=== PATIENT | male | born 1990 | race Caucasian/White ===

== ENCOUNTER 2020-06-23 01:35 | Inpatient (IN) | payer MEDICAID ==
[~2020-06-23] VITALS: Ht 175.3 cm; Wt 80.0 kg
[2020-06-23] VITALS (18 sets, daily range): BP systolic 101–135; BP diastolic 61–84
[2020-06-23] MEDS ORDERED: etomidate 2mg/ml inj. IV ONE (01:36)
[2020-06-23] MEDS ORDERED: succinylcholine 20mg/ml inj IV STA (01:36)
[2020-06-23] MEDS ORDERED: methylPREDNISolone sod succ 125mg/2ml vial IV ONE (01:45)
[2020-06-23] MEDS ORDERED: ipratropium/albuterol 3ml nebule NEB ONE (01:45)
[2020-06-23] MEDS: propofol 1000mg/100ml bottle 100 ML IV PRN ×2 (01:56→04:59)
--- NOTE | 2020-06-23 02:06 | NUR ---
warmed blankets on pt and lights dimmed, try to quiet him. Had to increase propofol gtt. Girlfriend is here in the lobby.
[2020-06-23 02:09] LABS: ISTAT CREATININE 1.2 mg/dL (0.8-1.3); ISTAT HGB 16.3 g/dl (14.0-18.0); ISTAT IONIZED CALCIUM 1.33 mmol/L (1.03-1.32); ISTAT K 4.3 mmol/L (3.5-5.1); POC BUN/CREATININE RATIO 20.8 (5.4-32.0)
[2020-06-23 02:10] LABS: BASOPHILS # (AUTO) 0.1 X10'3 (0-0.2); BASOPHILS % (AUTO) 0.6 % (0-1); EOSINOPHILS # (AUTO) 1.3 X10'3 (0-0.9); EOSINOPHILS % (AUTO) 6.3 % (0-6); LYMPHOCYTES # (AUTO) 8.1 X10'3 (1.1-4.8); LYMPHOCYTES % (AUTO) 39.5 % (21-51); MEAN CORPUSCULAR HEMOGLOBIN 30.1 PG (27.0-31.0); MEAN CORPUSCULAR HGB CONC 32.6 g/dL (33.0-36.5); MEAN CORPUSCULAR VOLUME 92.3 FL (78-98); MEAN PLATELET VOLUME 9.2 FL (7.4-10.4); MONOCYTES # (AUTO) 1.6 X10'3 (0-0.9); MONOCYTES % (AUTO) 7.8 % (2-12); NEUTROPHILS # (AUTO) 9.4 X10'3 (1.8-7.7); NEUTROPHILS % (AUTO) 45.8 % (42-75); PLATELET COUNT 333 X10'3 (140-440); RED BLOOD COUNT 4.98 X10'6 (4.70-6.10); WHITE BLOOD COUNT 20.5 X10'3 (4.5-11.0)
[2020-06-23] MEDS: midazolam 100mg in NS 100ml 100 ML IV SCH ×2 (02:15→07:44)
[2020-06-23 02:17] LABS: ABG BASE EXCESS -10.9 mmol/L (-2.0-2.0); ABG HCO3 21.4 mmol/L (22.0-26.0); ABG OXYGEN SATURATION 99.6 % (94-97); ABG PCO2 (T) 77.6 mmHg (35.0-48.0); ABG PO2 (T) 570.3 mmHg (75.0-100.0); ALLEN'S TEST POSITIVE; FCOHb 0.1 % (0.0-3.9); FMetHb 0.4 % (0.0-1.5); FO2Hb 99.1 % (94-97); PATIENT TEMPERATURE 36.5; PEEP 5 cm H2O; RESPIRATORY RATE 16 b/min; TOTAL HEMOGLOBIN 15.4 G/dl (14.0-18.0)
[2020-06-23 02:19] LABS: ALANINE AMINOTRANSFERASE 31 U/L (12-78); ALBUMIN 4.5 G/DL (3.4-5.0); ALBUMIN/GLOBULIN RATIO 1.2 (1.1-1.5); ALKALINE PHOSPHATASE 78 IU/L (46-116); ANION GAP 14 (8-16); ASPARTATE AMINO TRANSFERASE 19 U/L (10-37); BILIRUBIN,TOTAL 0.3 MG/DL (0.1-1.0); BLOOD UREA NITROGEN 21 MG/DL (7-18); BUN/CREATININE RATIO 16.4 (5.4-32.0); CALCIUM 9.5 MG/DL (8.5-10.1); CHLORIDE 101 MMOL/L (99-107); CREATININE 1.28 MG/DL (0.60-1.10); GLUCOSE 238 MG/DL (70-104); SODIUM 139 MMOL/L (135-145); TOTAL CARBON DIOXIDE 24.2 MMOL/L (24-32); TOTAL PROTEIN 8.3 G/DL (6.4-8.2); eGFR 67 ML/MIN
--- NOTE | 2020-06-23 02:20 | NUR ---
lab called need to redraw coags serum would not result
[2020-06-23 02:22] LABS: POTASSIUM 4.5 MMOL/L (3.5-5.1)
[2020-06-23 02:26] LABS: C-REACTIVE PROTEIN 0.11 MG/DL (0.0-0.5)
[2020-06-23 02:40] LABS: CLARITY,URINE CLEAR (Clear); COLOR,URINE YELLOW (Yellow); GLUCOSE, URINE NEGATIVE (Neg); KETONES,URINE NEGATIVE (Neg); LEUKOCYTE ESTERASE ,URINE NEGATIVE (Neg); NITRITES, URINE NEGATIVE (Neg); OCCULT BLOOD,URINE SMALL (Neg); PROTEIN,URINE >=300 mg/dl (Neg); UROBILINOGEN,URINE 0.2 E.U/dL (0.2-1.0)
--- NOTE | 2020-06-23 02:41 | NUR ---
got vivi of girlfriend, she is on her way in.
[2020-06-23 02:45] LABS: UA COLLECTION TYPE CLN CATCH MIDSTREAM
[2020-06-23 02:46] LABS: BACTERIA,URINE FEW /HPF (Neg); RBC,URINE 0-2 /HPF (0-2); SQUAMOUS EPITHELIAL CELL,UR FEW /LPF (FEW); WBC,URINE 0-4 /HPF (0-4)
--- NOTE | 2020-06-23 02:46 | NUR ---
Girlfriend states that he was just having trouble with his asthma tonight, doing breathing treatments and his inhaler but it just wasn't working and he just go worse and worse. States the only other thing she knows is that he was recently diagnosed with autism.
[2020-06-23] MEDS ORDERED: magnesium 2GM in 50ml NS 50 ML IV ONE (02:50)
[2020-06-23 03:01] LABS: URINE AMPHETAMINE SCREEN NEGATIVE (Neg); URINE BARBITUATE SCREEN NEGATIVE (Neg); URINE BENZODIAZEPINES SCREEN NEGATIVE (Neg); URINE CANNABINOID SCREEN POSITIVE (Neg); URINE COCAINE SCREEN NEGATIVE (Neg); URINE METHADONE SCREEN NEGATIVE (Neg); URINE OPIATE SCREEN NEGATIVE (Neg); URINE PHENCYCLIDINE SCREEN NEGATIVE (Neg)
[2020-06-23 03:12] LABS: PLATELET ESTIMATE NORMAL; TOTAL CELLS COUNTED 100
[2020-06-23] MEDS ORDERED: albuterol 2.5 MG/3 ML nebule NEB PRN (03:40)
[2020-06-23] MEDS ORDERED: acetaminophen 325mg tablet PO PRN ×2 (03:40)
[2020-06-23] MEDS ORDERED: magnesium hydroxide 30ml (MOM) UD suspension PO PRN (03:40)
[2020-06-23] MEDS ORDERED: ondansetron/PF 4mg/2ml inj IV PRN (03:40)
[2020-06-23] MEDS ORDERED: potassium Cl 20 mEq SR tablet PO PRN ×2 (03:40)
[2020-06-23] MEDS ORDERED: albuterol 2.5 MG/3 ML nebule ONE (03:46)
[2020-06-23] MEDS ORDERED: ALBU8.5H8 INH (03:55)
[2020-06-23] MEDS ORDERED: ALBU2.5V10 NEB (03:55)
[2020-06-23] MEDS ORDERED: BECL7.3A INH (03:55)
[2020-06-23 04:22] LABS: D-DIMER 0.38 MG/L FEU (0-0.50)
[2020-06-23] MEDS: normal saline 1000ml 1,000 ML IV SCH ×2 (05:15→17:20)
[2020-06-23] MEDS: methylPREDNISolone sod succ 125mg/2ml vial IV SCH ×3 (07:33→20:27)
[2020-06-23] MEDS ORDERED: ipratropium/albuterol 3ml nebule NEB SCH (08:00)
--- NOTE | 2020-06-23 08:30 | NUR ---
PATIENT FOUND TO BE RESTLESS IN BED, SEDATION OFF DUE TO SEDATION VACATION. PATIENT ABLE TO REACH ET TUBE AND PULLED OUT OF TRACHEA. PATIENT FOUND TO HAVE BILATERAL LUNG WHEEZES. PATIENT PLACED ON 02-2L VIA NC, SP02 >93%. PATIENT STILL DROWSY AND NOT OPENING EYES, BUT ABLE TO NOD HEAD TO ANSWER SIMPLE QUESTIONS. DR. TORO NOTIFIED. WILL CONTINUE TO MONITOR FOR RESPIRATORY DISTRESS.
[2020-06-23] MEDS ORDERED: adenosine 3mg/ml 2ml vial IV ONE (09:00)
[2020-06-23] MEDS ORDERED: etomidate 2mg/ml inj. ONE (09:00)
[2020-06-23] MEDS: ipratropium/albuterol 3ml nebule NEB SCH ×4 (10:29→22:20)
[2020-06-24] VITALS (8 sets, daily range): BP systolic 98–124; BP diastolic 49–74
[2020-06-24] MEDS: ipratropium/albuterol 3ml nebule NEB SCH ×2 (03:00→07:18)
[2020-06-24] MEDS: methylPREDNISolone sod succ 125mg/2ml vial IV SCH ×2 (03:37→07:33)
[2020-06-24] MEDS: normal saline 1000ml 1,000 ML IV SCH (03:37)
--- NOTE | 2020-06-24 06:43 | NUR ---
Patient in room CICU 2011. I have received report from [facility] and had the opportunity to ask questions and assume patient care.
--- NOTE | 2020-06-24 10:06 | NUR ---
1000- Dr Poe rounds-Discharge home on prednisone taper, recommended to stop smoking. Girlfriend at bedside.
[2020-06-24] MEDS ORDERED: PRED20TA PO (10:08)
--- NOTE | 2020-06-24 12:09 | NUR ---
1100- patient discharged home with all belongings.
[2020-06-25] MEDS ORDERED: prednisone 10mg tablet PO SCH (08:30)
== END 2020-06-24 13:39 | disposition home or self-care (01) | DRG 141 ==
LOC: ER 01:36 → EDBD 01:36 → ED HOLD 03:37 → CICU 2S 04:30
PROVIDERS: ADMIT Internal Medicine Pulmonary Disease; ATTEND Internal Medicine Pulmonary Disease
PROC: 5A1935Z Respiratory Ventilation, Less than 24 Consecutive Hours (ICD-10-PCS; principal; 2020-06-23)
PROC: 0BH17EZ Insertion of Endotracheal Airway into Trachea, Via Natural or Artificial Opening (ICD-10-PCS; 2020-06-23)
DX: J45.902 Unspecified asthma with status asthmaticus (principal); R09.2 Respiratory arrest; Z91.19 Patient's noncompliance with other medical treatment and regimen; R23.0 Cyanosis; Z91.14 Patient's other noncompliance with medication regimen; F12.10 Cannabis abuse, uncomplicated; Z20.822 Contact with and (suspected) exposure to COVID-19
CPT/HCPCS: 31500; 36415; 36600; 71045; 80047; 80053; 80305; 81001; 82803; 83880; 84145; 84478; 84484; 85007; 85018; 85025; 85379; 86140; 87081; 87635; 93005; 94002; 94003; 94640; 94664; 94760; 97116; 97161; 97530; 99291; C9803; G0378; J0153; J0330; J2704; J2930; J3475; J7030